=== PATIENT | female | born 1960 | race Caucasian/White ===

== ENCOUNTER 2023-11-29 15:09 | Inpatient (IN) ==
[2023-11-29] MEDS: IPRATROPIUM/ALBUTEROL 3 ML AMPUL.NEB NEB ONE (16:20)
[2023-11-29 16:57] LABS: Basophils # (Auto) 0.01 K/mcL (0.00-0.30); Basophils % (Auto) 0.1 % (0.0-2.0); Eosinophils # (Auto) 0.07 K/mcL (0.00-0.70); Eosinophils % (Auto) 0.5 % (0.0-7.0); Hematocrit 35.6 % (34.1-44.9); Hemoglobin 11.1 g/dL (11.2-15.7); Lymphocytes # (Auto) 1.27 K/mcL (1.50-4.80); Lymphocytes % (Auto) 9.7 % (15.5-49.0); Mean Cell Volume 92.7 fL (80.0-100.0); Mean Corpuscular HGB Conc 31.2 g/dL (31.0-36.0); Mean Platelet Volume 10.3 fL (8.8-12.5); Monocytes # (Auto) 0.92 K/mcL (0.10-0.90); Neutrophils % (Auto) 82.2 % (38.0-78.0); Platelet Count 304 K/mcL (140-440); RBC 3.84 M/mcL (3.59-5.38); Red Cell Distribution Width 12.9 % (11.5-14.5); WBC 13.2 K/mcL (4.5-11.0)
[2023-11-29] MEDS: cefTRIAXone 1 GM VIAL IV ONE (17:19)
[2023-11-29 20:57] LABS: ALT/SGPT 15 U/L (<40); AST/SGOT 30 U/L (<32); Albumin 3.4 gm/dL (3.2-5.2); Albumin/Globulin Ratio 1.1 (1.0-2.3); Alkaline Phosphatase 89 U/L (39-117); Anion Gap 16.7 (8.0-16.0); Bilirubin,Total 0.6 mg/dL (0.1-1.0); Blood Urea Nitrogen 14 mg/dL (8-23); Calcium 7.8 mg/dL (8.6-10.4); Carbon Dioxide 21 mmol/L (22-30); Chloride 102 mmol/L (96-108); Glomerular Filtration Rate 67; Glucose 144 mg/dL (70-105); Potassium 3.5 mmol/L (3.3-5.1); Sodium 140 mmol/L (133-145)
[2023-11-29 21:23] LABS: Basophils % (Manual) 1 % (0-2); Hypochromasia 1+ (None Seen); Lymphocytes % 12 % (15-49); Monocytes % (Manual) 4 % (1-12); Platelet Estimate NORMAL (Normal); RBC Morphology ABNORMAL (Normal); Segmented Neutrophils % 83 % (38-78)
[2023-11-29 21:29] LABS: C-Reactive Protein 7.31 mg/dL (0.03-0.80)
[2023-11-29 21:40] LABS: Amphetamine Screen,Urine None detected; Barbiturate Screen,Urine None detected; Benzodiazepines Screen,Urine None detected; Cannabinoid Screen,Urine None detected; Cocaine Screen,Urine None detected; Fentanyl, Urine Screen None Detected; Opiate Screen,Urine None detected; Oxycodone, Urine Screen None detected; Phencyclidine Screen,Urine None detected
[2023-11-29] MEDS ORDERED: POTASSIUM CHLORIDE 40 MEQ in DEXTROSE 5% IN WATER 500 ML IV PRN (23:48)
[2023-11-29] MEDS ORDERED: VANCOMYCIN PER PHARMACY IV SCH (23:48)
[2023-11-29] MEDS ORDERED: POTASSIUM CHLORIDE 20 MEQ TABLET PO PRN (23:48)
[2023-11-29] MEDS ORDERED: ONDANSETRON 4 MG/2 ML VIAL IV PRN (23:48)
[2023-11-29] MEDS ORDERED: POLYETHYLENE GLYCOL 3350 17 GM PACKET PO PRN (23:48)
[2023-11-29] MEDS ORDERED: MAGNESIUM SULFATE 2 GM/50 ML BAG IV PRN (23:48)
[2023-11-29] MEDS ORDERED: SENNOSIDES 1 TABLET PO PRN (23:48)
[2023-11-29] MEDS ORDERED: METOCLOPRAMIDE 10 MG/2 ML VIAL IV PRN (23:48)
[2023-11-30] MEDS: IPRATROPIUM/ALBUTEROL 3 ML AMPUL.NEB NEB SCH (01:01)
[2023-11-30] MEDS: ENOXAPARIN 40 MG/0.4 ML SYRINGE SQ SCH (01:04)
[2023-11-30] MEDS: FUROSEMIDE 40 MG/4 ML VIAL IV ONE ×3 (01:04→10:32)
[2023-11-30] MEDS: methylPREDNISolone SOD SUCC 125 MG/2 ML VIAL IV ONE (01:04)
[2023-11-30] MEDS: ENOXAPARIN 40 MG/0.4 ML SYRINGE ONE (01:07)
[2023-11-30] MEDS: methylPREDNISolone SOD SUCC 125 MG/2 ML VIAL ONE (01:07)
[2023-11-30] MEDS: IPRATROPIUM/ALBUTEROL 3 ML AMPUL.NEB NEB ONE (02:29)
[2023-11-30 06:30] LABS: C-Reactive Protein 8.11 mg/dL (0.03-0.80)
[2023-11-30 06:31] LABS: ALT/SGPT 17 U/L (<40); AST/SGOT 31 U/L (<32); Albumin 3.5 gm/dL (3.2-5.2); Alkaline Phosphatase 94 U/L (39-117); Bilirubin,Direct < 0.2 mg/dL (0-0.3); Bilirubin,Total 0.4 mg/dL (0.1-1.0); Blood Urea Nitrogen 13 mg/dL (8-23); Calcium 7.9 mg/dL (8.6-10.4); Carbon Dioxide 25 mmol/L (22-30); Chloride 101 mmol/L (96-108); Globulin 3.4 gm/dL (2.2-3.7); Glomerular Filtration Rate 68; Glucose 163 mg/dL (70-105); Lactate Dehydrogenase 219 U/L (135-225); Phosphorous 2.4 mg/dL (2.5-4.5); Potassium 3.5 mmol/L (3.3-5.1); Sodium 139 mmol/L (133-145); Triglycerides 95 mg/dL (<150); Uric Acid 6.6 mg/dL (2.5-8.0)
[2023-11-30 06:38] LABS: Hematocrit 35.4 % (34.1-44.9); Hemoglobin 11.4 g/dL (11.2-15.7); Mean Cell Volume 90.3 fL (80.0-100.0); Mean Corpuscular HGB Conc 32.2 g/dL (31.0-36.0); Mean Platelet Volume 10.2 fL (8.8-12.5); Platelet Count 313 K/mcL (140-440); RBC 3.92 M/mcL (3.59-5.38); WBC 12.3 K/mcL (4.5-11.0)
[2023-11-30] MEDS: VANCOMYCIN 1,500 MG in 0.9 % SODIUM CHLORIDE 500 ML IV SCH (08:38)
[2023-11-30] MEDS: LEVOFLOXACIN 750 MG/150 ML BAG IV SCH (08:38)
[2023-11-30] MEDS ORDERED: CYCLOBENZAPRINE 10 MG TABLET PO PRN (08:42)
[2023-11-30 08:46] LABS: Lymphocytes % 6 % (15-49); Platelet Estimate NORMAL (Normal); RBC Morphology NORMAL (Normal); Segmented Neutrophils % 94 % (38-78)
[2023-11-30] MEDS ORDERED: LEVOTHYROXINE 125 MCG TABLET PO SCH (09:00)
[2023-11-30] MEDS: cefTRIAXone 2 GM in DEXTROSE 5% IN WATER 50 ML IV SCH (09:04)
[2023-11-30] MEDS: amLODIPine 10 MG TABLET PO SCH (09:21)
[2023-11-30] MEDS: SERTRALINE 50 MG TABLET PO SCH (09:21)
[2023-11-30] MEDS: LEVOTHYROXINE 125 MCG TABLET PO SCH (09:21)
[2023-11-30] MEDS: ATORVASTATIN 40 MG TABLET PO SCH (09:21)
[2023-11-30] MEDS: lamoTRIgine 100 MG TABLET PO SCH (09:22)
[2023-11-30] MEDS: LISINOPRIL 10 MG TABLET PO SCH (09:22)
[2023-11-30] MEDS: methylPREDNISolone SOD SUCC 125 MG/2 ML VIAL IV SCH (09:23)
[2023-11-30] MEDS: GABAPENTIN 300 MG CAPSULE PO SCH (09:23)
[2023-11-30] MEDS: DOCUSATE SODIUM 100 MG CAPSULE PO SCH (09:25)
[2023-11-30] MEDS: CALCIUM GLUCONATE 4.65 MEQ in DEXTROSE 5% IN WATER 50 ML IV SCH (09:40)
[2023-11-30 16:05] LABS: Appearance,Urine Slightly Cloudy (Clear); Bacteria,Urine Few /hpf (0); Bilirubin,Urine Negative (Negative); Color,Urine Yellow; Glucose,Urine (UA) Negative (Negative); Ketones,Urine Negative (Negative); Leukocyte Esterase,Urine Negative /uL (Negative); Nitrate,Urine Negative (Negative); PH,Urine 5.5 (5.0-9.0); Protein,Urine Negative (Negative); Specific Gravity,Urine 1.015 (1.000-1.035); Urine Blood Negative ery/mcL (Negative); Urine Hyaline Cast 6 /lph (0-2); Urine RBC 1 /hpf (0-3); Urine Squamous Epithelial Cell 2 /hpf (0-4); Urine WBC 1 /hpf (0-4); Urobilinogen,Urine Normal
[2023-11-30] MEDS: 0.9 % SODIUM CHLORIDE 10 ML SYRINGE IV SCH (21:02)
[2023-12-01 05:53] LABS: Basophils # (Auto) 0.01 K/mcL (0.00-0.30); Basophils % (Auto) 0.1 % (0.0-2.0); Eosinophils # (Auto) 0 K/mcL (0.00-0.70); Eosinophils % (Auto) 0 % (0.0-7.0); Hematocrit 33.1 % (34.1-44.9); Hemoglobin 10.7 g/dL (11.2-15.7); Lymphocytes # (Auto) 0.77 K/mcL (1.50-4.80); Mean Cell Volume 89.2 fL (80.0-100.0); Mean Corpuscular HGB Conc 32.3 g/dL (31.0-36.0); Mean Platelet Volume 9.9 fL (8.8-12.5); Monocytes # (Auto) 0.41 K/mcL (0.10-0.90); Monocytes % (Auto) 3.2 % (1.0-12.0); Neutrophils % (Auto) 90.1 % (38.0-78.0); Platelet Count 307 K/mcL (140-440); RBC 3.71 M/mcL (3.59-5.38); Red Cell Distribution Width 12.8 % (11.5-14.5); WBC 12.7 K/mcL (4.5-11.0)
[2023-12-01 06:16] LABS: Erythrocyte Sedimentation Rate 52 mm/hr (0-30)
[2023-12-01 06:18] LABS: ALT/SGPT 27 U/L (<40); AST/SGOT 37 U/L (<32); Albumin 3.3 gm/dL (3.2-5.2); Alkaline Phosphatase 85 U/L (39-117); Bilirubin,Direct < 0.2 mg/dL (0-0.3); Bilirubin,Total 0.3 mg/dL (0.1-1.0); Blood Urea Nitrogen 25 mg/dL (8-23); C-Reactive Protein 5.21 mg/dL (0.03-0.80); Calcium 8.2 mg/dL (8.6-10.4); Carbon Dioxide 25 mmol/L (22-30); Chloride 101 mmol/L (96-108); Globulin 3.2 gm/dL (2.2-3.7); Glomerular Filtration Rate 53; Glucose 202 mg/dL (70-105); Lactate Dehydrogenase 217 U/L (135-225); Phosphorous 3.9 mg/dL (2.5-4.5); Potassium 3.6 mmol/L (3.3-5.1); Sodium 139 mmol/L (133-145); Triglycerides 82 mg/dL (<150); Uric Acid 7.7 mg/dL (2.5-8.0)
[2023-12-01] MEDS: ACETAMINOPHEN 325 MG TABLET PO PRN (12:07)
[2023-12-02 06:04] LABS: Basophils # (Auto) 0 K/mcL (0.00-0.30); Basophils % (Auto) 0 % (0.0-2.0); Eosinophils # (Auto) 0.01 K/mcL (0.00-0.70); Eosinophils % (Auto) 0.1 % (0.0-7.0); Hematocrit 33.4 % (34.1-44.9); Hemoglobin 10.2 g/dL (11.2-15.7); Lymphocytes # (Auto) 2.43 K/mcL (1.50-4.80); Lymphocytes % (Auto) 20.9 % (15.5-49.0); Mean Cell Volume 94.6 fL (80.0-100.0); Mean Corpuscular HGB Conc 30.5 g/dL (31.0-36.0); Mean Platelet Volume 9.9 fL (8.8-12.5); Monocytes # (Auto) 1.05 K/mcL (0.10-0.90); Neutrophils % (Auto) 69.5 % (38.0-78.0); Platelet Count 286 K/mcL (140-440); RBC 3.53 M/mcL (3.59-5.38); Red Cell Distribution Width 13.1 % (11.5-14.5); WBC 11.6 K/mcL (4.5-11.0)
[2023-12-02 06:46] LABS: C-Reactive Protein 2.67 mg/dL (0.03-0.80)
[2023-12-02 06:49] LABS: Blood Urea Nitrogen 35 mg/dL (8-23); Calcium 8.3 mg/dL (8.6-10.4); Carbon Dioxide 27 mmol/L (22-30); Chloride 103 mmol/L (96-108); Glomerular Filtration Rate 48; Glucose 120 mg/dL (70-105); Potassium 3.3 mmol/L (3.3-5.1); Sodium 141 mmol/L (133-145)
[2023-12-02] MEDS: POTASSIUM CHLORIDE 20 MEQ TABLET PO PRN (11:47)
[2023-12-02] MEDS: CEFDINIR 300 MG CAPSULE PO SCH (20:35)
[2023-12-03 06:26] LABS: Basophils # (Auto) 0 K/mcL (0.00-0.30); Basophils % (Auto) 0 % (0.0-2.0); Eosinophils # (Auto) 0.19 K/mcL (0.00-0.70); Eosinophils % (Auto) 2.7 % (0.0-7.0); Hematocrit 32.5 % (34.1-44.9); Hemoglobin 9.8 g/dL (11.2-15.7); Lymphocytes # (Auto) 2.34 K/mcL (1.50-4.80); Lymphocytes % (Auto) 33.9 % (15.5-49.0); Mean Cell Volume 95.6 fL (80.0-100.0); Mean Corpuscular HGB Conc 30.2 g/dL (31.0-36.0); Mean Platelet Volume 10.2 fL (8.8-12.5); Monocytes # (Auto) 0.71 K/mcL (0.10-0.90); Monocytes % (Auto) 10.3 % (1.0-12.0); Neutrophils % (Auto) 52.5 % (38.0-78.0); Platelet Count 253 K/mcL (140-440); Red Cell Distribution Width 13.3 % (11.5-14.5); WBC 6.9 K/mcL (4.5-11.0)
[2023-12-03 06:37] LABS: ALT/SGPT 36 U/L (<40); AST/SGOT 30 U/L (<32); Albumin 3.1 gm/dL (3.2-5.2); Albumin/Globulin Ratio 1.2 (1.0-2.3); Alkaline Phosphatase 75 U/L (39-117); Bilirubin,Direct < 0.2 mg/dL (0-0.3); Bilirubin,Total 0.2 mg/dL (0.1-1.0); Blood Urea Nitrogen 35 mg/dL (8-23); Calcium 7.6 mg/dL (8.6-10.4); Carbon Dioxide 26 mmol/L (22-30); Chloride 103 mmol/L (96-108); Globulin 2.6 gm/dL (2.2-3.7); Glomerular Filtration Rate 44; Glucose 103 mg/dL (70-105); Lactate Dehydrogenase 161 U/L (135-225); Phosphorous 4.9 mg/dL (2.5-4.5); Potassium 3.8 mmol/L (3.3-5.1); Sodium 138 mmol/L (133-145); Triglycerides 132 mg/dL (<150); Uric Acid 8.8 mg/dL (2.5-8.0)
[2023-12-03] MEDS: LEVOTHYROXINE 125 MCG TABLET PO SCH (07:36)
[2023-12-03] MEDS: 0.9 % SODIUM CHLORIDE 1,000 ML IV ONE (08:31)
[2023-12-03] MEDS: LEVOFLOXACIN 750 MG TABLET PO SCH (08:31)
[2023-12-03 15:30] LABS: Blood Urea Nitrogen 33 mg/dL (8-23); Calcium 8.1 mg/dL (8.6-10.4); Carbon Dioxide 25 mmol/L (22-30); Chloride 103 mmol/L (96-108); Glomerular Filtration Rate 48; Glucose 109 mg/dL (70-105); Potassium 4.2 mmol/L (3.3-5.1); Sodium 137 mmol/L (133-145)
[2023-12-03] MEDS: 0.9 % SODIUM CHLORIDE 1,000 ML IV SCH (17:12)
[2023-12-04] MEDS: IPRATROPIUM/ALBUTEROL 3 ML AMPUL.NEB NEB PRN (01:00)
[2023-12-04 07:08] LABS: Basophils # (Auto) 0 K/mcL (0.00-0.30); Basophils % (Auto) 0 % (0.0-2.0); Eosinophils # (Auto) 0.27 K/mcL (0.00-0.70); Hematocrit 32.8 % (34.1-44.9); Hemoglobin 9.6 g/dL (11.2-15.7); Lymphocytes # (Auto) 2.26 K/mcL (1.50-4.80); Lymphocytes % (Auto) 33.5 % (15.5-49.0); Mean Cell Volume 97.6 fL (80.0-100.0); Mean Corpuscular HGB Conc 29.3 g/dL (31.0-36.0); Monocytes # (Auto) 0.65 K/mcL (0.10-0.90); Monocytes % (Auto) 9.6 % (1.0-12.0); Neutrophils % (Auto) 52.3 % (38.0-78.0); Platelet Count 246 K/mcL (140-440); RBC 3.36 M/mcL (3.59-5.38); Red Cell Distribution Width 13.3 % (11.5-14.5); WBC 6.8 K/mcL (4.5-11.0)
[2023-12-04 07:18] LABS: ALT/SGPT 30 U/L (<40); AST/SGOT 24 U/L (<32); Albumin 3.1 gm/dL (3.2-5.2); Albumin/Globulin Ratio 1.2 (1.0-2.3); Alkaline Phosphatase 70 U/L (39-117); Bilirubin,Direct < 0.2 mg/dL (0-0.3); Bilirubin,Total 0.3 mg/dL (0.1-1.0); Blood Urea Nitrogen 24 mg/dL (8-23); Calcium 7.5 mg/dL (8.6-10.4); Carbon Dioxide 25 mmol/L (22-30); Chloride 108 mmol/L (96-108); Globulin 2.5 gm/dL (2.2-3.7); Glomerular Filtration Rate 53; Glucose 98 mg/dL (70-105); Lactate Dehydrogenase 165 U/L (135-225); Phosphorous 3.9 mg/dL (2.5-4.5); Potassium 4.2 mmol/L (3.3-5.1); Sodium 143 mmol/L (133-145); Triglycerides 109 mg/dL (<150)
== END 2023-12-04 14:42 | disposition home health service (06) | DRG 871 ==
LOC: ED 15:09 → ICU 23:35 → MEDSUR 12-03 13:48
PROVIDERS: ADMIT Internal Medicine; ATTEND Internal Medicine